=== PATIENT | male | born 1945 | race Caucasian/White ===

== ENCOUNTER 2017-01-07 20:34 | Emergency (ER) | payer OTHER ==
--- NOTE | 2017-01-07 23:03 | DIAGNOSTIC IMAGING REPORT ---
PROCEDURE: ABDOMEN/PELVIS WITH CONTRAST CLINICAL INDICATION: ABDOMINAL PAIN TECHNIQUE: 125 ml of Isovue 300 were injected intravenously and axial images were obtained of the abdomen and pelvis with sagittal and coronal reformations. COMPARISON: 05/06/2012 FINDINGS: ABDOMEN: Small hazy patchy ground-glass opacity left posterior lung base. No effusion. Normal sized heart. Anterior pericardial thickening. No hiatal hernia. The liver, gallbladder, adrenal glands, kidneys, pancreas and spleen are normal. The abdominal aorta is normal in its course and caliber. Very mild atherosclerosis. There are no suspicious calcifications, retroperitoneal adenopathy or masses. The stomach, upper bowel loops, and mesentery are normal. Intact anterior abdominal wall. No free fluid or inflammation. PELVIS: The appendix was not visualized. The pelvic small bowel loops are normal. Normal amount of stool in the colon and rectum. There is a small left posterior bladder diverticulum. The prostate gland, seminal vesicles, urinary bladder, and pelvic vessels are otherwise normal. No adenopathy, free fluid, or pelvic mass. L4-5 and L5-S1 degeneration. IMPRESSION: 1. Small infiltrate left lower lung lobe without effusion, likely inflammatory/infectious process. 2. No other acute process. 3. Findings called to the emergency room. All CT scans at this facility use dose modulation, iterative reconstruction, and/or weight-based dosing when appropriate to reduce radiation dose to as low as reasonably achievable.
--- NOTE | 2017-01-07 23:08 | DIAGNOSTIC IMAGING REPORT ---
PROCEDURE: XR CHEST 2 VIEW INDICATION: FEVER TECHNIQUE: Two views. COMPARISON: 01/16/2015 FINDINGS: Stable cardiomediastinal contour with prominent central pulmonary arteries. No central venous congestion. Slight retraction of the suraj superiorly. Biapical pleural plaquing. Diffusely coarse interstitial markings. Hyperinflated lungs. Small retrocardiac alveolar opacity. No pleural effusion. Intact osseous structures. IMPRESSION: 1. Small retrocardiac alveolar opacity, similar compared to the prior study. 2. Findings superimposed on moderate emphysematous changes. 3. Upper lobe fibrotic changes of biapical plaquing and superior hilar retraction.
--- NOTE | 2017-01-07 23:53 | ED CLINICAL REPORT ---
Clinical Report - Physicians/Mid Levels [facility] [address] [place] [address] 01/07/2017 20:35 Patient: JULIANA FERNANDEZ V Time Seen: 21:36 Jan 07 2017. Arrived- By private vehicle. Historian- patient and family. CPT: ER phys charges level 4 (#[id number]). HISTORY OF PRESENT ILLNESS Chief Complaint: FEVER and WEAKNESS. ( Onset. (2 days). ( Patient family report that they have all been sick with respiratory illness. They report that the patient began to lose his appetite over the last two days and has not been drinking much. They report he has become confused and unable to walk or dress as usual. Patient cannot articulate why he feels unwell but states he feels "terrible".).). 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 At its maximum, severity described as moderate. When seen in the E.D., severity described as moderate. Modifying factors. Not worsened by anything. Not relieved by anything. The patient has had fatigue and weakness. Similar symptoms previously: Several times, as bad. Diagnosis: (UTI, URI, dehydration, depression). Recent medical care: Not recently seen/assessed. REVIEW OF SYSTEMS No fever, sore throat, sinus drainage, nasal congestion or difficulty breathing. No chest pain, abdominal pain, nausea, vomiting or diarrhea. No black stools, bloody stools, chills, difficulty with urination or skin rash. No back pain, calf pain, headache, blackouts or double vision. The patient has had a mild cough productive of scant amounts of sputum. He has had difficulty with ambulation (chronically). PAST HISTORY Dementia. Head Injury. Agent orange. Abdominal Pain. Back Pain. Depression. Parkinson's Disease. --20:45 Sarah Antonio. ADDITIONAL SURGERIES: Appendectomy. Back Surgery. Shoulder Surgery. Medications: Acyclovir Oral. Carbidopa-Levodopa Oral 25/250 mg, 4x a day. Cymbalta Oral. FentaNYL Transdermal 25 mcg/hr, every 72 hours. Gabapentin Oral 800 mg, 3x a day. [place] Citrate Oral 450mg, daily. Metoprolol 50 mg, 2x a day. Nuedexta Oral. Prilosec Oral, as needed. Ropinerol 1 mg, 3x a day. VESIcare Oral. Vicodin Oral, as needed. Allergies: Lorazepam. SOCIAL HISTORY Never smoker. No alcohol use or drug use. ADDITIONAL NOTES The nursing notes have been reviewed. PHYSICAL EXAM Vital Signs: 01/07/2017 20:43 BP: 127/70. HR: 102. RR: 22. O2 saturation: 95%. Temp: 100.1 F. Pain level now: 0/10. Appearance: Alert. No acute distress. Eyes: Eyes normal inspection. ENT: Ears normal. Nose normal. Dry mucous membranes present. Pharynx normal. Neck: Normal inspection. Neck supple. No meningeal signs. CVS: Normal heart rate and rhythm. Heart sounds normal. Pulses normal. Respiratory: No respiratory distress. Breath sounds normal. Chest nontender. Abdomen: Soft and nontender. Back: Normal inspection. Skin: Skin warm. Normal skin color. No rash. Extremities: Extremities exhibit normal ROM. No calf tenderness. No lower extremity edema. Neuro: Oriented X 3. No motor deficit. No sensory deficit. Reflexes normal. (Parkinson's tremor). LABS, X-RAYS, AND EKG Chest X-ray: Infiltrate in the left lower lobe. Consistent with pneumonia. Views: PA and lateral. Technique: good. The X-rays were independently viewed by me, interpreted by the radiologist and discussed with the radiologist. Abdominal CT: No acute findings in abdominal cavity. LLL infiltrate seen. Abdominal CT performed with IV contrast. The study was independently viewed by me, interpreted by the radiologist and discussed with the radiologist. Laboratory Tests: CBC w Diff: (MAURICE: 01/07/2017 21:00) ( MsgRcvd 01/07/2017 21:16) Final results Test Result Flag Units (Reference) WHITE BLOOD COUNT 10.6 K/uL (4.5-11.5) RED BLOOD COUNT 4.70 M/uL (4.50-5.90) HEMOGLOBIN 14.6 gm/dL (13.5-17.5) HEMATOCRIT 43.0 % (41.0-53.0) MEAN CELL VOLUME 92 fL (80-100) MEAN CORPUSCULAR HGB 31 pg (26-34) MEAN CORPUSCULAR HGB CONC 34 g/dL (31-37) RED CELL DISTRIBUTION WIDTH 12.8 % (11.6-14.8) PLATELET COUNT 195 K/uL (150-400) NEUTROPHIL % 89.6 H % (50-75) LYMPH % 2.7 L % (25-40) MONO % 7.6 % (3-14) EOSINOPHIL % 0.1 % (0-4) BASOPHIL % 0 % (0-2) [place] Level: (MAURICE: 01/07/2017 21:00) ( [facility] 01/07/2017 22:02) Final results Test Result Flag Units (Reference) LITHIUM 0.6 mmol/L (0.5-1.5) Lipase: (MAURICE: 01/07/2017 21:00) ( [facility] 01/07/2017 22:09) Final results Test Result Flag Units (Reference) LIPASE 74 U/L (73-393) AMYLASE 43 U/L (25-115) CPK 42 U/L (24-260) TROPONIN I <0.05 ng/mL (0.00-1.5) TROPONIN REFERENCE RANGE:<0.1 NEGATIVE0.1-1.5 INDETERMINANT>1.5 POSITIVE THYROID STIMULATING HORMONE 3.385 uIU/mL (0.30-3.74) CMP: (MAURICE: 01/07/2017 21:00) ( [facility] 01/07/2017 21:26) Final results Test Result Flag Units (Reference) GLUCOSE 133 H mg/dL (70-110) BUN 22 H mg/dL (7-18) CREATININE 1.1 mg/dL (0.6-1.3) Estimated GFR >60 mL/min Estimated GFR- >60 mL/min Note: Persistent reduction over 3 months in eGFR<60 mL/min/1.73 m2 defines CKD. Patients with eGFR values>=60 mL/min/1.73 m2 may also have CKD if evidence ofpersistent proteinuria. Additional information may be foundat www.kidney.org. SODIUM 138 mmol/L (136-145) POTASSIUM 4.0 mmol/L (3.5-5.1) CHLORIDE 103 mmol/L (98-107) CARBON DIOXIDE 25 mmol/L (21-32) CALCIUM 9.0 mg/dL (8.5-10.1) TOTAL PROTEIN 8.0 g/dL (6.4-8.2) ALBUMIN 3.7 g/dL (3.3-5.0) BILIRUBIN, TOTAL 0.5 mg/dL (0.0-1.0) ALKALINE PHOSPHATASE 111 U/L (46-116) AST (SGOT) 19 U/L (15-37) ALT (SGPT) 27 U/L (12-78) . PROGRESS AND PROCEDURES Course of Care: IV NS Looks a lot better after IV fluids according to family. He says he feels a lot better. They think they can manage him at home . Rocephin 2g IV Zithromax 500 mg po Patient is stable. Discussed case with patient's primary care provider, (Yvrose: agrees with plan.). Reviewed test results. Agreed upon treatment plan. Health care provider will see patient in office. Patient/family counseled. Disposition: Discharged. Condition: stable and improved. CLINICAL IMPRESSION Early left lower lobe pneumonia Dehydration. INSTRUCTIONS No strenuous activity. Rest. Drink plenty of fluids. Warnings: Further evaluation is necessary. GENERAL WARNINGS: Return or contact your physician immediately if your condition worsens or changes unexpectedly, if not improving as expected, or if other problems arise. Your Current Medications: CONTINUE TAKING THE FOLLOWING MEDICATIONS: Acyclovir Oral. Carbidopa-Levodopa Oral : 25/250 mg 4x a day. Cymbalta Oral. FentaNYL Transdermal : 25 mcg/hr every 72 hours. Gabapentin Oral : 800 mg 3x a day. [place] Citrate Oral : 450mg daily. Metoprolol* : 50 mg 2x a day. Nuedexta Oral. Prilosec Oral : prn. Ropinerol* : 1 mg 3x a day. VESIcare Oral. Vicodin Oral : prn. Prescription Medications: Zithromax 500 mg tablets: take 1 orally every day for 2 days. Total course 2 days. No refills. Substitution is permissible. Ceftin 500 mg: take 1 tab orally every 12 hours for 10 days. No refills. Substitution is permissible. OTC Medications: Acetaminophen (available over the counter): take according to label instructions. Understanding of the discharge instructions verbalized by patient. Follow-up with: Loki Frances MD, [facility], , [facility], [address] [place] [address] Follow up in three days. Call for the next available appointment. (Electronically signed by Vinicius Jones MD 01/11/2017 10:38)
--- NOTE | 2017-01-07 23:53 | ED ORDER SUMMARY ---
..... 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) (tachycardia ) (20:54 01/07/2017 HSoule per protocol) (20:59 HSoule) CBC w Diff Urgent (20:55 01/07/2017 HSoule per protocol) (Ack 21:02 Jesusitaekimana) (22:05 AMcKenna) CMP Urgent (20:55 01/07/2017 HSoule per protocol) (Ack 21:02 Aliciaimana) (22:05 AMcKenna) UA-Culture if indicated Urgent (20:55 01/07/2017 HSoule per protocol) (Ack 21:02 Beto) (23:17 HSoule) Amylase Urgent (21:46 01/07/2017 Geraldine VIEIRA) (Ack 21:48 Beto) (22:05 AMcKenna) Lipase Urgent (21:46 01/07/2017 Geraldine VIEIRA) (Ack 21:48 Beto) (22:05 AMcKenna) CPK Urgent (21:46 01/07/2017 Geraldine VIEIRA) (Ack 21:48 Beto) (22:05 AMcKenna) Troponin-I Urgent (21:46 01/07/2017 Geraldine VIEIRA) (Ack 21:48 Beto) (22:05 AMcKenna) TSH Urgent (21:46 01/07/2017 Geraldine VIEIRA) (Ack 21:48 Beto) (22:05 AMcKenna) [place] Level Urgent (21:46 01/07/2017 Geraldine VIEIRA) (Ack 21:48 Beto) (22:05 AMcKenna) Chest 2V Urgent (21:46 01/07/2017 Geraldine VIEIRA) (Ack 21:48 Beto) (22:05 AMcKenna) CT Abd/Pel w Cont (No) (pending) Urgent (21:47 01/07/2017 Geraldine VIEIRA) (Ack 21:48 Beto) (22:05 AMcKenna) MEDICATION ORDERS: Zithromax PO 500 mg (NOW) (23:08 01/07/2017 Geraldine VIEIRA) (Ack 23:08 HSoule) (23:17 HSoule) IV FLUIDS: IV Saline Lock (20:55 01/07/2017 HSoule per protocol) (Ack 20:59 HSoule) (21:02 HSoule) IV NS : initial bolus 500 mL (1000 mL/hr), then 250 mL/hr for 2h (NOW); Routine (21:46 01/07/2017 Geraldine VIEIRA) (Ack 21:47 HSoule) (21:53 HSoule) Rocephin IV 2 gm/50mL (NOW) (23:07 01/07/2017 Geraldine VIEIRA) (Ack 23:08 HSoule) (23:17 HSoule) ORDER SHEET NOTES: [Electronically signed by Fredrick Bahena R.N. (23:53 01/07/2017)] [Electronically locked/signed by Fredrick Bahena R.N. (23:53 01/07/2017)]
--- NOTE | 2017-01-07 23:53 | ED CLINICAL REPORT ---
Clinical Report - Physicians/Mid Levels [facility] [address] [place] [address] 01/07/2017 20:35 Patient: JULIANA FERNANDEZ V Time Seen: 21:36 Jan 07 2017. Arrived- By private vehicle. Historian- patient and family. CPT: ER phys charges level 4 (#[id number]). HISTORY OF PRESENT ILLNESS Chief Complaint: FEVER and WEAKNESS. ( Onset. (2 days). ( Patient family report that they have all been sick with respiratory illness. They report that the patient began to lose his appetite over the last two days and has not been drinking much. They report he has become confused and unable to walk or dress as usual. Patient cannot articulate why he feels unwell but states he feels "terrible".).). 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 At its maximum, severity described as moderate. When seen in the E.D., severity described as moderate. Modifying factors. Not worsened by anything. Not relieved by anything. The patient has had fatigue and weakness. Similar symptoms previously: Several times, as bad. Diagnosis: (UTI, URI, dehydration, depression). Recent medical care: Not recently seen/assessed. REVIEW OF SYSTEMS No fever, sore throat, sinus drainage, nasal congestion or difficulty breathing. No chest pain, abdominal pain, nausea, vomiting or diarrhea. No black stools, bloody stools, chills, difficulty with urination or skin rash. No back pain, calf pain, headache, blackouts or double vision. The patient has had a mild cough productive of scant amounts of sputum. He has had difficulty with ambulation (chronically). PAST HISTORY Dementia. Head Injury. Agent orange. Abdominal Pain. Back Pain. Depression. Parkinson's Disease. --20:45 Sarah Antonio. ADDITIONAL SURGERIES: Appendectomy. Back Surgery. Shoulder Surgery. Medications: Acyclovir Oral. Carbidopa-Levodopa Oral 25/250 mg, 4x a day. Cymbalta Oral. FentaNYL Transdermal 25 mcg/hr, every 72 hours. Gabapentin Oral 800 mg, 3x a day. [place] Citrate Oral 450mg, daily. Metoprolol 50 mg, 2x a day. Nuedexta Oral. Prilosec Oral, as needed. Ropinerol 1 mg, 3x a day. VESIcare Oral. Vicodin Oral, as needed. Allergies: Lorazepam. SOCIAL HISTORY Never smoker. No alcohol use or drug use. ADDITIONAL NOTES The nursing notes have been reviewed. PHYSICAL EXAM Vital Signs: 01/07/2017 20:43 BP: 127/70. HR: 102. RR: 22. O2 saturation: 95%. Temp: 100.1 F. Pain level now: 0/10. Appearance: Alert. No acute distress. Eyes: Eyes normal inspection. ENT: Ears normal. Nose normal. Dry mucous membranes present. Pharynx normal. Neck: Normal inspection. Neck supple. No meningeal signs. CVS: Normal heart rate and rhythm. Heart sounds normal. Pulses normal. Respiratory: No respiratory distress. Breath sounds normal. Chest nontender. Abdomen: Soft and nontender. Back: Normal inspection. Skin: Skin warm. Normal skin color. No rash. Extremities: Extremities exhibit normal ROM. No calf tenderness. No lower extremity edema. Neuro: Oriented X 3. No motor deficit. No sensory deficit. Reflexes normal. (Parkinson's tremor). LABS, X-RAYS, AND EKG Chest X-ray: Infiltrate in the left lower lobe. Consistent with pneumonia. Views: PA and lateral. Technique: good. The X-rays were independently viewed by me, interpreted by the radiologist and discussed with the radiologist. Abdominal CT: No acute findings in abdominal cavity. LLL infiltrate seen. Abdominal CT performed with IV contrast. The study was independently viewed by me, interpreted by the radiologist and discussed with the radiologist. Laboratory Tests: CBC w Diff: (MAURICE: 01/07/2017 21:00) ( MsgRcvd 01/07/2017 21:16) Final results Test Result Flag Units (Reference) WHITE BLOOD COUNT 10.6 K/uL (4.5-11.5) RED BLOOD COUNT 4.70 M/uL (4.50-5.90) HEMOGLOBIN 14.6 gm/dL (13.5-17.5) HEMATOCRIT 43.0 % (41.0-53.0) MEAN CELL VOLUME 92 fL (80-100) MEAN CORPUSCULAR HGB 31 pg (26-34) MEAN CORPUSCULAR HGB CONC 34 g/dL (31-37) RED CELL DISTRIBUTION WIDTH 12.8 % (11.6-14.8) PLATELET COUNT 195 K/uL (150-400) NEUTROPHIL % 89.6 H % (50-75) LYMPH % 2.7 L % (25-40) MONO % 7.6 % (3-14) EOSINOPHIL % 0.1 % (0-4) BASOPHIL % 0 % (0-2) [place] Level: (MAURICE: 01/07/2017 21:00) ( [facility] 01/07/2017 22:02) Final results Test Result Flag Units (Reference) LITHIUM 0.6 mmol/L (0.5-1.5) Lipase: (MAURICE: 01/07/2017 21:00) ( [facility] 01/07/2017 22:09) Final results Test Result Flag Units (Reference) LIPASE 74 U/L (73-393) AMYLASE 43 U/L (25-115) CPK 42 U/L (24-260) TROPONIN I <0.05 ng/mL (0.00-1.5) TROPONIN REFERENCE RANGE:<0.1 NEGATIVE0.1-1.5 INDETERMINANT>1.5 POSITIVE THYROID STIMULATING HORMONE 3.385 uIU/mL (0.30-3.74) CMP: (MAURICE: 01/07/2017 21:00) ( [facility] 01/07/2017 21:26) Final results Test Result Flag Units (Reference) GLUCOSE 133 H mg/dL (70-110) BUN 22 H mg/dL (7-18) CREATININE 1.1 mg/dL (0.6-1.3) Estimated GFR >60 mL/min Estimated GFR- >60 mL/min Note: Persistent reduction over 3 months in eGFR<60 mL/min/1.73 m2 defines CKD. Patients with eGFR values>=60 mL/min/1.73 m2 may also have CKD if evidence ofpersistent proteinuria. Additional information may be foundat www.kidney.org. SODIUM 138 mmol/L (136-145) POTASSIUM 4.0 mmol/L (3.5-5.1) CHLORIDE 103 mmol/L (98-107) CARBON DIOXIDE 25 mmol/L (21-32) CALCIUM 9.0 mg/dL (8.5-10.1) TOTAL PROTEIN 8.0 g/dL (6.4-8.2) ALBUMIN 3.7 g/dL (3.3-5.0) BILIRUBIN, TOTAL 0.5 mg/dL (0.0-1.0) ALKALINE PHOSPHATASE 111 U/L (46-116) AST (SGOT) 19 U/L (15-37) ALT (SGPT) 27 U/L (12-78) . PROGRESS AND PROCEDURES Course of Care: IV NS Looks a lot better after IV fluids according to family. He says he feels a lot better. They think they can manage him at home . Rocephin 2g IV Zithromax 500 mg po Patient is stable. Discussed case with patient's primary care provider, (Yvrose: agrees with plan.). Reviewed test results. Agreed upon treatment plan. Health care provider will see patient in office. Patient/family counseled. Disposition: Discharged. Condition: stable and improved. CLINICAL IMPRESSION Early left lower lobe pneumonia Dehydration. INSTRUCTIONS No strenuous activity. Rest. Drink plenty of fluids. Warnings: Further evaluation is necessary. GENERAL WARNINGS: Return or contact your physician immediately if your condition worsens or changes unexpectedly, if not improving as expected, or if other problems arise. Your Current Medications: CONTINUE TAKING THE FOLLOWING MEDICATIONS: Acyclovir Oral. Carbidopa-Levodopa Oral : 25/250 mg 4x a day. Cymbalta Oral. FentaNYL Transdermal : 25 mcg/hr every 72 hours. Gabapentin Oral : 800 mg 3x a day. [place] Citrate Oral : 450mg daily. Metoprolol* : 50 mg 2x a day. Nuedexta Oral. Prilosec Oral : prn. Ropinerol* : 1 mg 3x a day. VESIcare Oral. Vicodin Oral : prn. Prescription Medications: Zithromax 500 mg tablets: take 1 orally every day for 2 days. Total course 2 days. No refills. Substitution is permissible. Ceftin 500 mg: take 1 tab orally every 12 hours for 10 days. No refills. Substitution is permissible. OTC Medications: Acetaminophen (available over the counter): take according to label instructions. Understanding of the discharge instructions verbalized by patient. Follow-up with: Loki Frances MD, [facility], , [facility], [address] [place] [address] Follow up in three days. Call for the next available appointment. (Electronically signed by Vinicius Jones MD 01/11/2017 10:38)
--- NOTE | 2017-01-07 23:53 | ED ORDER SUMMARY ---
..... 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) (tachycardia ) (20:54 01/07/2017 HSoule per protocol) (20:59 HSoule) CBC w Diff Urgent (20:55 01/07/2017 HSoule per protocol) (Ack 21:02 Jesusitaekimana) (22:05 AMcKenna) CMP Urgent (20:55 01/07/2017 HSoule per protocol) (Ack 21:02 Aliciaimana) (22:05 AMcKenna) UA-Culture if indicated Urgent (20:55 01/07/2017 HSoule per protocol) (Ack 21:02 Beto) (23:17 HSoule) Amylase Urgent (21:46 01/07/2017 Geraldine VIEIRA) (Ack 21:48 Beto) (22:05 AMcKenna) Lipase Urgent (21:46 01/07/2017 Geraldine VIEIRA) (Ack 21:48 Beto) (22:05 AMcKenna) CPK Urgent (21:46 01/07/2017 Geraldine VIEIRA) (Ack 21:48 Beto) (22:05 AMcKenna) Troponin-I Urgent (21:46 01/07/2017 Gerladine VIEIRA) (Ack 21:48 Beto) (22:05 AMcKenna) TSH Urgent (21:46 01/07/2017 Geraldine VIEIRA) (Ack 21:48 Beto) (22:05 AMcKenna) [place] Level Urgent (21:46 01/07/2017 Geraldine VIEIRA) (Ack 21:48 Beto) (22:05 AMcKenna) Chest 2V Urgent (21:46 01/07/2017 Geraldine VIEIRA) (Ack 21:48 Beto) (22:05 AMcKenna) CT Abd/Pel w Cont (No) (pending) Urgent (21:47 01/07/2017 Geraldine VIEIRA) (Ack 21:48 Beto) (22:05 AMcKenna) MEDICATION ORDERS: Zithromax PO 500 mg (NOW) (23:08 01/07/2017 Geraldine VIEIRA) (Ack 23:08 HSoule) (23:17 HSoule) IV FLUIDS: IV Saline Lock (20:55 01/07/2017 HSoule per protocol) (Ack 20:59 HSoule) (21:02 HSoule) IV NS : initial bolus 500 mL (1000 mL/hr), then 250 mL/hr for 2h (NOW); Routine (21:46 01/07/2017 Geraldine VIEIRA) (Ack 21:47 HSoule) (21:53 HSoule) Rocephin IV 2 gm/50mL (NOW) (23:07 01/07/2017 Geraldine VIEIRA) (Ack 23:08 HSoule) (23:17 HSoule) ORDER SHEET NOTES: [Electronically signed by Fredrick Bahena R.N. (23:53 01/07/2017)] [Electronically locked/signed by Fredrick Bahena R.N. (23:53 01/07/2017)]
--- NOTE | 2017-01-07 23:53 | ED NURSING NOTES ---
Clinical Report - Nurses [facility] [address] [place] [address] 01/07/2017 20:35 Patient: JULIANA FERNANDEZ V TRIAGE Triage time 20:43 Jan 07 2017. Acuity: LEVEL 3. Chief Complaint: FEVER, POOR APPETITE and CONFUSION. SEPSIS SCREEN: Sepsis Screen: negative. Infection suspected/documented. Heart rate greater than 90. ALLAN COMA SCORE: Allan Coma Scale: 14- eyes open spontaneously (4); best verbal response- disoriented (4); best motor response- obeys commands (6). --20:48 Sarah Antonio 20:43 01/07/17. BP: 127/70. HR: 102. RR: 22. O2 saturation: 95% on room air. Temp: 100.1 F (oral). Pain level now: 0/10. --20:48 Sarah Antonio. Weight: 81.6 kg stated. Height/Length: 79 inches Per Patient. BMI: 20.3. --20:46 Sarah Antonio. Medications Acyclovir Oral. Carbidopa-Levodopa Oral 25/250 mg, 4x a day. Cymbalta Oral. FentaNYL Transdermal 25 mcg/hr, every 72 hours. Gabapentin Oral 800 mg, 3x a day. [place] Citrate Oral 450mg, daily. Metoprolol 50 mg, 2x a day. Nuedexta Oral. Prilosec Oral, as needed. Ropinerol 1 mg, 3x a day. VESIcare Oral. Vicodin Oral, as needed. --20:45 Sarah Antonio. Medication/allergy information source: the patient. --20:48 Sarah Antonio. Allergies Lorazepam. --20:45 Sarah Antonio. History Arrived by private vehicle. Historian: patient and family. Accompanied by family. Primary physician (Yvrose). Onset. (2 days). ( Patient family report that they have all been sick with respiratory illness. They report that the patient began to lose his appetite over the last two days and has not been drinking much. They report he has become confused and unable to walk or dress as usual. Patient cannot articulate why he feels unwell but states he feels "terrible".). PAST MEDICAL HX: Immunizations: up-to-date. SOCIAL HX: Never smoker. No alcohol use or drug use. No infectious disease exposure. ABUSE ASSESSMENT: No report of abuse. SELF HARM ASSESSMENT: A self harm assessment was performed. The patient answered "no" to the question "Have you recently felt down, depressed, or hopeless?", "Have you noticed less interest or pleasure in doing things?", "Do you have thoughts of harming or killing yourself?", "Are you here because you tried to hurt yourself?", "Have you ever tried to hurt yourself before today?", "Have you recently had thoughts about harming or killing others?" and "Do you have any dangerous items in your possession?". FALL RISK ASSESSMENT: Fall risk assessment completed. Risk factors identified include patient medications, age greater than 65 years and impairment of mobility. Fall interventions initiated. Patient placed on stretcher. Side rails up x2. Brakes on Bed in low position. Family at bedside. Call light in reach of patient. Instructed not to get up without assistance. --20:48 Sarah Antonio. PROBLEMS: Dementia. Head Injury. Agent orange. Abdominal Pain. Back Pain. Depression. Parkinson's Disease. --20:45 Sarah Antonio. ADDITIONAL SURGERIES: Appendectomy. Back Surgery. Shoulder Surgery. --20:45 Sarah Antonio. Interventions ID band on patient. To treatment room. --20:48 Sarah Antonio. PHYSICAL ASSESSMENT To room via wheelchair. Patient gowned. GENERAL / NEURO / PSYCH: Alert. The patient is disoriented to place. HEENT: Mucous membranes are pink. RESPIRATORY: Respirations not labored. CVS: Cardiac rhythm: sinus tachycardia; (105). GI / : Abdomen soft and nontender. SKIN: Skin is warm and dry. --20:49 Sarah Antonio. NURSING PROGRESS NOTES 20:49 01/07/17. supervisor electronic coils, pulse oximeter and NIBP monitor placed on patient; monitor alarms on. Patient gowned. Head of bed elevated. Warming measures: blanket applied. Reassurance given to the patient and patient's family. Two patient identifiers checked. Call light placed in reach. Side rails up x 1. Bed placed in lowest position. Brakes of bed on. Patient ready for evaluation- chart flagged and ED physician notified. --20:49 Paco Sarah 21:01 01/07/2017 Site #1 started via IV in the left antecubital space with an 20g angiocath, with aseptic technique and good blood return; one attempt. Blood drawn: rainbow set and cultures x1. Labeled in the presence of the patient and sent to the lab. Saline lock flushed with 10 mL saline. --21:02 Sarah Antonio ( Patient and family aware patient needs to provide urine sample.). --21:02 Sarah Antonio 21:17 01/07/17. HR: 98. RR: 20. O2 saturation: 94% on room air. --21:18 Sarah Antonio 21:28 01/07/17. BP: 114/55. HR: 105. RR: 20. O2 saturation: 92% on room air. --21:29 Sarah Antonio ( Patient assisted up to sit in chair. Patient reports his stomach hurts him. Patient weak while ambulating and requires two person assist.). --21:37 Sarah Antonio 21:53 01/07/2017 Started bag #1 1000 mL IV Fluids IV NS (Saline); at 999 mL/hr over 30 minute(s) via site #1 via IV pump. Allergies verified and confirmed 5 rights. IV patency established. IV site checked: no pain, redness, or swelling. IV flushed thoroughly pre- and post-medication administration. --21:53 Sarah Antonio Patient transported to radiology by stretcher with tech. (22:Jan 07 2017). --22:09 Sarah Antonio 22:34 01/07/17. Patient returned from CT by stretcher with tech. (22:Jan 07 2017). --22:34 Sarah Antonio 22:46 01/07/17. BP: 110/62. HR: 95. RR: 22. O2 saturation: 93% on room air. Pain level now: 0/10. --22:47 Paco Sarah ( PO fluids provided to patient). --22:47 Paris Antonioh Patient ID band checked for patient name and birthdate: patient confirmed. Instructions provided to collect clean catch urine and patient verbalized understanding. Clean catch urine collected with return of shad-colored clear urine; sample sent to lab for urinalysis. Specimen labeled in the presence of the patient. --22:55 PacoSarah 23:17 01/07/2017 Started 2 gm of Rocephin (CefTRIAXone Sodium) IVPB in bag #1 50 mL; at 150 mL/hr over 20 minute(s) via site #1 via IV pump. Allergies verified and confirmed 5 rights. IV patency established. IV site checked: no pain, redness, or swelling. IV flushed thoroughly pre- and post-medication administration. --23:17 Sarah Antonio 23:17 01/07/2017 Zithromax PO Tablets 500 mg given. Allergies verified and confirmed 5 rights. --23:17 Sarah Antonio 23:35 01/07/2017 Rocephin IVPB Response: no adverse reaction. --23:35 Fredrick Bahena R.N. 23:36 01/07/2017 IV Fluids IV NS Discontinued: bag #1 completed upon discharge. Total amount infused: 1000 mL. IV patency established. IV site checked: no pain, redness, or swelling. IV flushed thoroughly. --23:36 Fredrick Bahena R.N. 23:36 01/07/2017 Zithromax PO Response: no adverse reaction. --23:36 Fredrick Bahena R.N. DISPOSITION / DISCHARGE Departure time: 23:52. Condition at departure: stable. The goals identified in the patient's plan of care were met. No learning barriers present. Discharge instructions provided and reviewed with the patient. Reviewed medication(s) side effects, precautions, dosing and course information. Prescription(s) given to the metal fabricator welder (Caregivers verbalize importance of finishing all prescribed antibiotics.). Patient verbalized understanding. Written instructions provided in Lithuanian. ( Juliana's caregivers verbalize understanding of all d/c instructions including need for f/u with PCP. They have no questions and voices no concerns at this time.). The patient was discharged by the physician. He was discharged home and accompanied by family. He left the Emergency Department ambulatory and via private vehicle. Family member driving. ALLAN COMA SCORE: Allan Coma Scale: 15- eyes open spontaneously (4); best verbal response- oriented x 4 (5); best motor response- obeys commands (6). --23:52 Fredrick Bahena R.N. 23:50 01/07/17. BP: 101/50 (regular adult cuff) taken on the left arm, via an automated monitor, while sitting. HR: 97 (normal rate). RR: 20 (regular, unlabored and normal). O2 saturation: 97% on room air. Temp: 98.5 F (oral). Pain level now: 0/10. --23:52 Fredrick Bahena R.N. 23:53 01/07/2017 Site #1 removed upon discharge. Catheter intact. Bandaid applied (Bleeding controlled.). --23:53 Fredrick Bahena R.N. Locked/Released at 01/07/2017 23:53 by Fredrick Bahena R.N.
--- NOTE | 2017-01-11 10:38 | ED MED RECONCILIATION SUMMARY ---
Patient: JULIANA FERNANDEZ V Medication Reconciliation Report [facility] VisitID: [id number] [address] [place] [address] 71y, M Registration Date/Time: 01/07/2017 Weight: 81.6 kg Height/Length: 79 in. BMI: 20.3 ALLERGIES: Lorazepam The patient's Home Medications are listed below: CONTINUE TAKING THE FOLLOWING MEDICATIONS: Acyclovir Oral Carbidopa-Levodopa Oral 25/250 mg, 4x a day Cymbalta Oral FentaNYL Transdermal 25 mcg/hr, every 72 hours Gabapentin Oral 800 mg, 3x a day [place] Citrate Oral 450mg, daily Metoprolol 50 mg, 2x a day Nuedexta Oral Prilosec Oral Ropinerol 1 mg, 3x a day VESIcare Oral Vicodin Oral The source(s) of the original Home Medication information: patient The following Medications were given to the patient in the Emergency Department: IV NS IV Fluids bolus 0, then 999 mL/hr, administered: 01/07/2017 9:53:00 PM Rocephin [IVPB] IVPB bolus 0, then 2 gm 150 mL/hr, administered: 01/07/2017 11:17:00 PM Zithromax [PO] PO 500 mg, administered: 01/07/2017 11:17:00 PM The following Medications were prescribed to the patient: Acetaminophen (available over the counter): take according to label instructions. -- Vinicius Jones MD Zithromax 500 mg tablets: take 1 orally every day for 2 days. Total course 2 days. No refills. Substitution is permissible. -- Vinicius Jones MD Ceftin 500 mg: take 1 tab orally every 12 hours for 10 days. No refills. Substitution is permissible. -- Vinicius Jones MD
--- NOTE | 2017-01-11 10:38 | ED DISCHARGE INSTRUCTIONS ---
Patient: JULIANA FERNANDEZ V General Instructions [facility] VisitID: [id number] [place] [address] 71y, M Registration Date/Time: 01/07/2017 Early left lower lobe pneumonia Dehydration. INSTRUCTIONS No strenuous activity. Rest. Drink plenty of fluids. Warnings: Further evaluation is necessary. GENERAL WARNINGS: Return or contact your physician immediately if your condition worsens or changes unexpectedly, if not improving as expected, or if other problems arise. Your Current Medications: CONTINUE TAKING THE FOLLOWING MEDICATIONS: Acyclovir Oral. Carbidopa-Levodopa Oral : 25/250 mg 4x a day. Cymbalta Oral. FentaNYL Transdermal : 25 mcg/hr every 72 hours. Gabapentin Oral : 800 mg 3x a day. [place] Citrate Oral : 450mg daily. Metoprolol* : 50 mg 2x a day. Nuedexta Oral. Prilosec Oral : prn. Ropinerol* : 1 mg 3x a day. VESIcare Oral. Vicodin Oral : prn. Prescription Medications: Zithromax 500 mg tablets: take 1 orally every day for 2 days. Total course 2 days. No refills. Substitution is permissible. Ceftin 500 mg: take 1 tab orally every 12 hours for 10 days. No refills. Substitution is permissible. OTC Medications: Acetaminophen (available over the counter): take according to label instructions. Understanding of the discharge instructions verbalized by patient. Follow-up with: Loki Frances MD, [facility], , [facility], [address] [place] [address] Follow up in three days. Call for the next available appointment. ADDITIONAL INFORMATION Azithromycin Oral tablet What is this medicine? AZITHROMYCIN (az ith ellis MYE sin) is a macrolide antibiotic. It is used to treat or prevent certain kinds of bacterial infections. It will not work for colds, flu, or other viral infections. How should I use this medicine? Take this medicine by mouth with a full glass of water. Follow the directions on the prescription label. The tablets can be taken with food or on an empty stomach. If the medicine upsets your stomach, take it with food. Take your medicine at regular intervals. Do not take your medicine more often than directed. Take all of your medicine as directed even if you think your are better. Do not skip doses or stop your medicine early. Talk to your steam table associate regarding the use of this medicine in children. Special care may be needed. What side effects may I notice from receiving this medicine? Side effects that you should report to your doctor or health home care coordinator as soon as possible: allergic reactions like skin rash, itching or hives, swelling of the face, lips, or tongue confusion, nightmares or hallucinations dark urine difficulty breathing hearing loss irregular heartbeat or chest pain pain or difficulty passing urine redness, blistering, peeling or loosening of the skin, including inside the mouth white patches or sores in the mouth yellowing of the eyes or skin Side effects that usually do not require medical attention (report to your doctor or health home care coordinator if they continue or are bothersome): diarrhea dizziness, drowsiness headache stomach upset or vomiting tooth discoloration vaginal irritation What may interact with this medicine? Do not take this medicine with any of the following medications: lincomycin This medicine may also interact with the following medications: amiodarone antacids cyclosporine digoxin magnesium nelfinavir phenytoin warfarin What if I miss a dose? If you miss a dose, take it as soon as you can. If it is almost time for your next dose, take only that dose. Do not take double or extra doses. Where should I keep my medicine? Keep out of the reach of children. Store at room temperature between 15 and 30 degrees C (59 and 86 degrees F). Throw away any unused medicine after the expiration date. What should I tell my health care provider before I take this medicine? They need to know if you have any of these conditions: kidney disease liver disease irregular heartbeat or heart disease an unusual or allergic reaction to azithromycin, erythromycin, other macrolide antibiotics, foods, dyes, or preservatives or trying to get breast-feeding What should I watch for while using this medicine? Tell your doctor or health home care coordinator if your symptoms do not improve. Do not treat diarrhea with over the counter products. Contact your doctor if you have diarrhea that lasts more than 2 days or if it is severe and watery. This medicine can make you more sensitive to the sun. Keep out of the sun. If you cannot avoid being in the sun, wear protective clothing and use sunscreen. Do not use sun lamps or tanning beds/booths. You have been given the following additional information: Azithromycin Oral tablet No strenuous activity. Rest. (Electronically signed by Vinicius Jones MD 01/11/2017 10:38)
--- NOTE | 2017-01-11 10:38 | ED MAR SUMMARY ---
..... Medication Administration Record [facility] [address] [place] [address] Patient: JULIANA FERNANDEZ V Visit ID: [id number] 71y, M Weight: 81.6 kg Height/Length: 79 in BMI: 20.3 ALLERGIES: Lorazepam Start 21:53 01/07/2017 Sarah Antonio,, Stop 23:36 01/07/2017 Fredrick Bahena R.N. Medication Administered: IV NS (SALINE), Dose: IV Fluids over 30 minute(s), Rate: 999 mL/hr, Dispensed: 1000 mL bag, Site: #1 left AC. Medication Ordered: IV NS : initial bolus 500 mL (1000 mL/hr), then 250 mL/hr for 2h (NOW); Routine. Start 23:17 01/07/2017 Sarah Antonio, Medication Administered: ROCEPHIN [IVPB] (CEFTRIAXONE SODIUM), Dose: 2 gm IVPB over 20 minute(s), Rate: 150 mL/hr, Dispensed: 50 mL bag, Site: #1 left AC. Medication Ordered: Rocephin IV 2 gm/50mL (NOW). Given 23:17 01/07/2017 Sarah Antonio, Medication Administered: ZITHROMAX [PO], Dose: 500 mg Tablets PO. Medication Ordered: Zithromax PO 500 mg (NOW).
--- NOTE | 2017-01-11 10:38 | ED DISCHARGE INSTRUCTIONS ---
Patient: JULIANA FERNANDEZ V General Instructions [facility] VisitID: [id number] [place] [address] 71y, M Registration Date/Time: 01/07/2017 Early left lower lobe pneumonia Dehydration. INSTRUCTIONS No strenuous activity. Rest. Drink plenty of fluids. Warnings: Further evaluation is necessary. GENERAL WARNINGS: Return or contact your physician immediately if your condition worsens or changes unexpectedly, if not improving as expected, or if other problems arise. Your Current Medications: CONTINUE TAKING THE FOLLOWING MEDICATIONS: Acyclovir Oral. Carbidopa-Levodopa Oral : 25/250 mg 4x a day. Cymbalta Oral. FentaNYL Transdermal : 25 mcg/hr every 72 hours. Gabapentin Oral : 800 mg 3x a day. [place] Citrate Oral : 450mg daily. Metoprolol* : 50 mg 2x a day. Nuedexta Oral. Prilosec Oral : prn. Ropinerol* : 1 mg 3x a day. VESIcare Oral. Vicodin Oral : prn. Prescription Medications: Zithromax 500 mg tablets: take 1 orally every day for 2 days. Total course 2 days. No refills. Substitution is permissible. Ceftin 500 mg: take 1 tab orally every 12 hours for 10 days. No refills. Substitution is permissible. OTC Medications: Acetaminophen (available over the counter): take according to label instructions. Understanding of the discharge instructions verbalized by patient. Follow-up with: Loki Frances MD, [facility], , [facility], [address] [place] [address] Follow up in three days. Call for the next available appointment. ADDITIONAL INFORMATION Azithromycin Oral tablet What is this medicine? AZITHROMYCIN (az ith ellis MYE sin) is a macrolide antibiotic. It is used to treat or prevent certain kinds of bacterial infections. It will not work for colds, flu, or other viral infections. How should I use this medicine? Take this medicine by mouth with a full glass of water. Follow the directions on the prescription label. The tablets can be taken with food or on an empty stomach. If the medicine upsets your stomach, take it with food. Take your medicine at regular intervals. Do not take your medicine more often than directed. Take all of your medicine as directed even if you think your are better. Do not skip doses or stop your medicine early. Talk to your fire chief deputy regarding the use of this medicine in children. Special care may be needed. What side effects may I notice from receiving this medicine? Side effects that you should report to your doctor or health critical care nurse as soon as possible: allergic reactions like skin rash, itching or hives, swelling of the face, lips, or tongue confusion, nightmares or hallucinations dark urine difficulty breathing hearing loss irregular heartbeat or chest pain pain or difficulty passing urine redness, blistering, peeling or loosening of the skin, including inside the mouth white patches or sores in the mouth yellowing of the eyes or skin Side effects that usually do not require medical attention (report to your doctor or health critical care nurse if they continue or are bothersome): diarrhea dizziness, drowsiness headache stomach upset or vomiting tooth discoloration vaginal irritation What may interact with this medicine? Do not take this medicine with any of the following medications: lincomycin This medicine may also interact with the following medications: amiodarone antacids cyclosporine digoxin magnesium nelfinavir phenytoin warfarin What if I miss a dose? If you miss a dose, take it as soon as you can. If it is almost time for your next dose, take only that dose. Do not take double or extra doses. Where should I keep my medicine? Keep out of the reach of children. Store at room temperature between 15 and 30 degrees C (59 and 86 degrees F). Throw away any unused medicine after the expiration date. What should I tell my health care provider before I take this medicine? They need to know if you have any of these conditions: kidney disease liver disease irregular heartbeat or heart disease an unusual or allergic reaction to azithromycin, erythromycin, other macrolide antibiotics, foods, dyes, or preservatives or trying to get breast-feeding What should I watch for while using this medicine? Tell your doctor or health critical care nurse if your symptoms do not improve. Do not treat diarrhea with over the counter products. Contact your doctor if you have diarrhea that lasts more than 2 days or if it is severe and watery. This medicine can make you more sensitive to the sun. Keep out of the sun. If you cannot avoid being in the sun, wear protective clothing and use sunscreen. Do not use sun lamps or tanning beds/booths. You have been given the following additional information: Azithromycin Oral tablet No strenuous activity. Rest. (Electronically signed by Vinicius Jones MD 01/11/2017 10:38)
--- NOTE | 2017-01-11 10:38 | ED MAR SUMMARY ---
..... Medication Administration Record [facility] [address] [place] [address] Patient: JULIANA FERNANDEZ V Visit ID: [id number] 71y, M Weight: 81.6 kg Height/Length: 79 in BMI: 20.3 ALLERGIES: Lorazepam Start 21:53 01/07/2017 Sarah Antonio,, Stop 23:36 01/07/2017 Fredrick Bahena R.N. Medication Administered: IV NS (SALINE), Dose: IV Fluids over 30 minute(s), Rate: 999 mL/hr, Dispensed: 1000 mL bag, Site: #1 left AC. Medication Ordered: IV NS : initial bolus 500 mL (1000 mL/hr), then 250 mL/hr for 2h (NOW); Routine. Start 23:17 01/07/2017 Sarah Antonio, Medication Administered: ROCEPHIN [IVPB] (CEFTRIAXONE SODIUM), Dose: 2 gm IVPB over 20 minute(s), Rate: 150 mL/hr, Dispensed: 50 mL bag, Site: #1 left AC. Medication Ordered: Rocephin IV 2 gm/50mL (NOW). Given 23:17 01/07/2017 Sarah Antonio, Medication Administered: ZITHROMAX [PO], Dose: 500 mg Tablets PO. Medication Ordered: Zithromax PO 500 mg (NOW).
--- NOTE | 2017-01-11 10:38 | ED MED RECONCILIATION SUMMARY ---
Patient: JULIANA FERNANDEZ V Medication Reconciliation Report [facility] VisitID: [id number] [address] [place] [address] 71y, M Registration Date/Time: 01/07/2017 Weight: 81.6 kg Height/Length: 79 in. BMI: 20.3 ALLERGIES: Lorazepam The patient's Home Medications are listed below: CONTINUE TAKING THE FOLLOWING MEDICATIONS: Acyclovir Oral Carbidopa-Levodopa Oral 25/250 mg, 4x a day Cymbalta Oral FentaNYL Transdermal 25 mcg/hr, every 72 hours Gabapentin Oral 800 mg, 3x a day [place] Citrate Oral 450mg, daily Metoprolol 50 mg, 2x a day Nuedexta Oral Prilosec Oral Ropinerol 1 mg, 3x a day VESIcare Oral Vicodin Oral The source(s) of the original Home Medication information: patient The following Medications were given to the patient in the Emergency Department: IV NS IV Fluids bolus 0, then 999 mL/hr, administered: 01/07/2017 9:53:00 PM Rocephin [IVPB] IVPB bolus 0, then 2 gm 150 mL/hr, administered: 01/07/2017 11:17:00 PM Zithromax [PO] PO 500 mg, administered: 01/07/2017 11:17:00 PM The following Medications were prescribed to the patient: Acetaminophen (available over the counter): take according to label instructions. -- Vinicius Jones MD Zithromax 500 mg tablets: take 1 orally every day for 2 days. Total course 2 days. No refills. Substitution is permissible. -- Vinicius Jones MD Ceftin 500 mg: take 1 tab orally every 12 hours for 10 days. No refills. Substitution is permissible. -- Vinicius Jonse MD
== END 2017-01-07 23:52 | disposition home or self-care (01) ==
LOC: ED SRH 20:34
DX: J18.9 Pneumonia, unspecified organism (principal); E86.0 Dehydration; Z79.899 Other long term (current) drug therapy; Z88.5 Allergy status to narcotic agent
CPT/HCPCS: 90004; 90100; 90616; 91589; 92235; 92530; 92610; 93140; 95059